=== PATIENT | male | born 1930 | race Caucasian/White ===

== ENCOUNTER 2019-02-21 14:18 | Inpatient (IN) ==
[2019-02-22 05:49] LABS: Basophils % 0.6 %; Eosinophils # 0.1 K/mcL (0.0-0.6); Eosinophils % 1.9 %; Hemoglobin 9.7 g/dL (12.9-16.9); Immature Granulocytes % 0.3 % (0-4); Lymphocytes % 14.4 %; Mean Corpuscular HGB Conc 31.3 g/dL (31.6-35.5); Mean Corpuscular Hemoglobin 25.7 pg (28.0-33.3); Mean Platelet Volume 10.7 fL (9.4-12.4); Monocytes # 0.8 K/mcL (0.0-1.3); Monocytes % 11.9 %; Platelet Count 279 K/mcL (140-400); Red Blood Count 3.78 M/mcL (4.19-5.50); Segmented Neutrophils % 70.9 %
[2019-02-22 06:10] LABS: BUN/Creatinine Ratio 18 (6-26); Blood Urea Nitrogen 13 mg/dL (8-23); Calcium 8.7 mg/dL (8.6-10.3); Carbon Dioxide 32 mEq/L (23-29); Chloride 97 mEq/L (98-107); Glucose 174 mg/dL (70-105); Osmolality,Calculated 288 (280-300); Potassium 3.5 mEq/L (3.5-5.1); Sodium 137 mEq/L (136-145); eGFR For African Americans > 60 (> 60); eGFR For Non-African Americans > 60 (> 60)
[2019-02-22] MEDS ORDERED: Insulin DETEMIR 100 UNIT/ML X5UNITS SQ SCH (09:00)
[2019-02-22] MEDS ORDERED: Spironolactone 25 MG TABLET PO SCH (09:00)
[2019-02-22] MEDS ORDERED: JARDIANCE 25MG PO SCH (09:00)
[2019-02-22] MEDS ORDERED: FLUoxetine HCl 10 MG CAPSULE PO SCH (09:00)
[2019-02-22] MEDS ORDERED: Furosemide 20 MG TABLET PO SCH (09:00)
[2019-02-22] MEDS ORDERED: Albuterol 2.5 MG/3 ML NEBULIZER ONE (12:33)
[2019-02-22] MEDS ORDERED: Bumetanide 1 MG TABLET PO SCH (15:00)
--- NOTE | 2019-02-22 15:07 | Internal Med History&Physical ---
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 Higher dose diuretics will be started. Workup for etiology of cirrhosis will be ordered. Qualifiers: Hepatic cirrhosis type: unspecified hepatic cirrhosis Ascites presence: with ascites Qualified Code(s): K74.60 - Unspecified cirrhosis of liver; R18.8 - Other ascites (2) Ascites Current visit: No Status: Acute Increase diuretics as above. Qualifiers: Ascites type: other type Qualified Code(s): R18.8 - Other ascites (3) Pleural effusion Current visit: Yes Status: Acute Echocardiogram will be ordered to evaluate ejection fraction and pericardial effusion. Increase diuretics. (4) Microcytic anemia Current visit: Yes Status: Chronic Anemia present on most labs since April 2014. Anemia testing will be ordered. (5) Low vitamin D level Current visit: Yes Status: Chronic Vitamin D level was 18 on 10/03/2014. Will recheck. (6) DM type 2 (diabetes mellitus, type 2) Current visit: Yes Status: Chronic Check hemoglobin A1c. Continue basal insulin and Accu-Cheks with SSI. Qualifiers: Diabetes mellitus ad terminal makeup operator insulin use: with ad terminal makeup operator use Diabetes mellitus complication status: without complication Qualified Code(s): E11.9 - Type 2 diabetes mellitus without complications; Z79.4 - detention (current) use of insulin (7) Hyperlipidemia Current visit: Yes Status: Chronic Check lipid profile in a.m. 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 Qualifiers: B-cell lymphoma type: unspecified B-cell Lymphoma site: unspecified region Qualified Code(s): C85.10 - Unspecified B-cell lymphoma, unspecified site (9) Falls Current visit: No Status: Acute PT and OT evaluation has been ordered. Qualifiers: Encounter type: initial encounter Qualified Code(s): W19.XXXA - Unspecified fall, initial encounter Internal Medicine - H&P: HPI Chief complaint: Fall, weakness, cirrhosis with ascites Admitted From: Hospital to Hospital Transfer Plans for Post Hospital Care: Home History of present illness: Mr. Rene is a 88 year old male who was hospitalized at [facility] February 16 after being found on the floor at home by his son. Patient had likely fallen 10-12 hours prior to being found but was unable to get up. His son who supplies most of the history states patient has had several previous falls. He routinely uses a wheeled walker at home. He was found to have large amount of ascites with evidence of liver cirrhosis and bilateral pleural effusions. Paracentesis by IR resulted in 7.28 L of fluid withdrawn. The fluid was not sent for analysis. He was started on Aldactone and Lasix and discharged to [facility] swing bed for ongoing care needs. The patient is a fair historian at best. He does not recall several details of his history. His son reports there is been increased abdominal girth over the past 2-3 months and the patient has become near bedridden. Patient lives alone with son next door. He has not consumed significant amount of alcohol in his lifetime and has had no previously documented liver disease. He had EGD for upper GI bleed at [facility] 2018 but the son does not know further details and the patient cannot remember the hospitalization. Patient denies known disorders of his liver or exocrine pancreas. He denies melena or hematochezia. Past Med Surg Social Fam HX - Past Medical History Medical history: cancer, CVA, diabetes, hyperlipidemia, hypertension Additional medical history: colon CA Psychiatric history: no psych history - Past Surgical History Surgical History: non-contributory - Social History Smoking Status: Former smoker Smokeless Tobacco Status: No Alcohol use: none Drug use: none Internal Medicine - H&P: Meds Insulin Glargine [Lantus] 50 unit SQ DAILY 05/01/17 [History] Omeprazole [PriLOSEC] 20 mg PO DAILY 03/25/18 [History] Ferrous Sulfate 325 mg PO BID 30 Days #60 tablet. 10/23/18 [Rx] Empagliflozin [Jardiance] 25 mg PO DAILY 02/18/19 [History] FLUoxetine HCl [Fluoxetine HCl] 10 mg PO DAILY 02/18/19 [History] Propranolol [Inderal] 20 mg PO DAILY 02/18/19 [History] Rosuvastatin [Crestor] 40 mg PO HS 02/18/19 [History] Furosemide [Lasix] 20 mg PO DAILY tablet 02/21/19 [Rx] Spironolactone [Aldactone] 12.5 mg PO DAILY tablet 02/21/19 [Rx] Allergy/AdvReac Type Severity Reaction Status Date / Time metformin AdvReac Unknown Abdominal Verified 10/23/18 09:24 Pain tamsulosin AdvReac Unknown unknown Verified 10/23/18 09:24 All Systems PM: A 10-system review of systems was performed and is negative for pertinent findings except as documented above in the HPI. Review of systems: Gen.: He states his weight has been stable for several months prior to developing ascites Cardiovascular: He has history of hypertension but denies CA heart failure angina DVT or pulmonary embolus Respiratory: He smoked briefly in his 20s but has no documented chronic lung disease and does not use home oxygen GI: As per history of present illness : He denies disorders of his kidney bladder or prostate Neurologic: He denies large distribution strokes or seizures. Endocrine: He was diagnosed with DM 2 approximately 20 years ago. He has hyp erlipidemia but no known thyroid disease. Hematology/oncology: He was diagnosed with B-cell lymphoma May 2017. He states he follows with an [facility] oncologist and thinks his most recent visit was at least 6 months ago. He denies other internal malignancies. He denies knowledge of anemia. Psychiatric: He denies anxiety depression or other mental health diagnosis. Musko skeletal: He denies arthritis gout or other bone joint or muscle disorders. - Constitutional Vitals: Temp Pulse Resp BP Pulse Ox 97.7 F 75 16 96/58 97 02/22/19 11:14 02/22/19 11:14 02/22/19 11:14 02/22/19 11:14 02/22/19 11:14 Exam: Gen.: He is a well-developed well-nourished male who appears in no severe distress. He denies pain at the present time. He states he is slightly dyspneic. HEENT: Head is atraumatic and normal cephalic. Eyes: EOMI. There is no scleral icterus. Mouth: Mucosa is moist. Neck: There is no thyromegaly or adenopathy noted. Heart: Regular without murmurs gallops or ectopics. Tones are soft. Lungs: He has bilateral pleural effusions to percussion. No wheezes or crackles are heard. Abdomen: He has a large abdomen with significant ascites present on percussion. No masses or guarding are noted. He has well-healed lower abdominal scar. Extremities: He has 2-3+ edema of the dorsal feet and lower legs bilaterally. Dorsalis pedis and posterior tibial pulses are nonpalpable. He has minimal DJD changes of his hands. He has multiple bruises and resolving skin tears on his arms. Neurologic: Mental status: He is alert and able to answer some questions but is a fair historian at best. Cranial nerves: Smile is symmetric. Forehead wrinkles bilaterally. Tongue protrudes midline. EOMI. Motor: There is no pronator drift. Cerebellar: Finger to nose is intact bilaterally. Skin: Warm and dry Internal Med - H&P Results - Labs CBC & Chem 7: 02/22/19 05:14 02/22/19 05:14 Labs: Short CBC 02/22/19 Range/Units 05:14 WBC 7.0 (4.3-11.1) K/mcL Hgb 9.7 L (12.9-16.9) g/dL Hct 31.0 L (37.5-50.1) % Plt Count 279 (140-400) K/mcL Neutrophils # 5.0 (1.6-8.9) K/mcL BMP 02/22/19 05:14 Sodium 137 Potassium 3.5 Chloride 97 L Carbon Dioxide 32 H BUN 13 Creatinine 0.74 Glucose 174 H Calcium 8.7
[2019-02-22] MEDS ORDERED: *HR* Dextrose 50 % in Water (Syg) 50 ML SYRINGE IVP PRN (16:29)
[2019-02-22] MEDS ORDERED: D5% in Water 1,000 ML IVC PRN (16:29)
[2019-02-22] MEDS ORDERED: Dextrose Gel 15 GM/37.5 ML TUBE PO PRN ×2 (16:29)
[2019-02-22] MEDS ORDERED: Insulin LISPRO 300 UNITS/3 ML VIAL SQ SCH (16:30)
[2019-02-22 16:32] LABS: Thyroid Stimulating Hormone 3.007 mcIU/mL (0.340-5.600)
[2019-02-22] MEDS ORDERED: *HR* Dextrose 50 % in Water (Vial) 50 ML VIAL IVP PRN (16:45)
[2019-02-22 20:30] LABS: Estimated Average Glucose 166 mg/dl
[2019-02-22 20:47] LABS: Ferritin 53 ng/mL (20-250); Iron < 10 mcg/dL (65-175); Transferrin 124 mg/dL (203-362)
[2019-02-22 20:52] LABS: Folate 7.8 ng/mL (3.0-16.0)
[2019-02-22 20:53] LABS: Vitamin B12 547 pg/mL (250-1100)
[2019-02-22 21:44] LABS: Bilirubin,Urine Negative (Negative); Blood,Urine Negative (Negative); Clarity,Urine Clear (Clear); Glucose,Urine (UA) Normal (Normal); Ketones,Urine Negative (Negative); Leukocyte Esterase,Urine Negative (Negative); Nitrite,Urine Negative (Negative); Protein,Urine Negative (Neg-Trace); Urobilinogen,Urine Normal (Normal)
[2019-02-22 21:45] LABS: Color,Urine Straw (Yellow)
[2019-02-22 22:52] LABS: Hepatitis B Surface Antigen Nonreactive (Nonreactive)
[2019-02-22 23:21] LABS: Hepatitis B Core IgM Nonreactive (Nonreactive); Hepatitis C Virus Antibody Nonreactive (Nonreactive)
[2019-02-22 23:23] LABS: Hepatitis A Antibody IgM Nonreactive (Nonreactive)
[2019-02-23 05:36] LABS: Basophils % 0.4 %; Eosinophils # 0.1 K/mcL (0.0-0.6); Eosinophils % 1.5 %; Hematocrit 31.4 % (37.5-50.1); Hemoglobin 10.1 g/dL (12.9-16.9); Immature Granulocytes % 0.4 % (0-4); Lymphocytes % 12.2 %; Mean Corpuscular HGB Conc 32.2 g/dL (31.6-35.5); Mean Corpuscular Volume 80.7 fL (83.0-100.0); Mean Platelet Volume 9.8 fL (9.4-12.4); Monocytes % 12.3 %; Neutrophils # 6.2 K/mcL (1.6-8.9); Platelet Count 341 K/mcL (140-400); Red Blood Count 3.89 M/mcL (4.19-5.50); Red Cell Distribution Width 19.4 % (11.5-14.5); Segmented Neutrophils % 73.2 %; White Blood Count 8.5 K/mcL (4.3-11.1)
[2019-02-23] MEDS ORDERED: *HR* Enoxaparin 40 MG/0.4 ML SYRINGE SQ SCH (06:00)
[2019-02-23 06:43] LABS: BUN/Creatinine Ratio 21 (6-26); Blood Urea Nitrogen 15 mg/dL (8-23); Calcium 8.4 mg/dL (8.6-10.3); Carbon Dioxide 35 mEq/L (23-29); Chloride 97 mEq/L (98-107); Chol/HDL Ratio 4.8 (0-4.9); Cholesterol 100 mg/dL (< 200); HDL Cholesterol 21 mg/dL (40-59); LDL Cholesterol,Calculated 68 mg/dL (0-99); Potassium 3.3 mEq/L (3.5-5.1); Sodium 136 mEq/L (136-145); Triglycerides 57 mg/dL (< 150); eGFR For African Americans > 60 (> 60); eGFR For Non-African Americans > 60 (> 60)
[2019-02-23 06:46] LABS: Osmolality,Calculated 278 (280-300)
[2019-02-23 06:50] LABS: Glucose 9 mg/dL (70-105)
[2019-02-23 07:25] VITALS: BP 138/74
--- NOTE | 2019-02-23 09:43 | Discharge Summary ---
Orders not resulted at time of discharge: Pending orders 02/22/19 14:56 EV echocardiogram Routine 02/22/19 15:45 [id number] Routine Ceruloplasmin Routine Smooth Muscle Antibody, IgG Routine 02/23/19 04:55 BRIANNE IgG JOHANN rflx IFA AM 0400 02/23/19 07:06 ABG [Arterial Blood Gas] Stat Date of Encounter: 02/23/19 Time of Encounter: 09:30 - Discharge Diagnosis (1) Cirrhosis of liver Priority: Primary Status: Chronic Qualifiers: Hepatic cirrhosis type: unspecified hepatic cirrhosis Ascites presence: with ascites Qualified Code(s): K74.60 - Unspecified cirrhosis of liver; R18.8 - Other ascites (2) Ascites Priority: Secondary Status: Acute Qualifiers: Ascites type: other type Qualified Code(s): R18.8 - Other ascites (3) Pleural effusion Priority: Secondary Status: Acute (4) Microcytic anemia Priority: Secondary Status: Chronic (5) Low vitamin D level Priority: Secondary Status: Chronic (6) DM type 2 (diabetes mellitus, type 2) Priority: Secondary Status: Chronic Qualifiers: Diabetes mellitus intermediate school teacher insulin use: with intermediate school teacher use Diabetes mellitus complication status: without complication Qualified Code(s): E11.9 - Type 2 diabetes mellitus without complications; Z79.4 - custodial (current) use of insulin (7) Hyperlipidemia Priority: Secondary Status: Chronic Qualifiers: Hyperlipidemia type: unspecified Qualified Code(s): E78.5 - Hyperlipidemia, unspecified (8) B-cell lymphoma Priority: Secondary Status: Chronic Qualifiers: B-cell lymphoma type: unspecified B-cell Lymphoma site: unspecified region Qualified Code(s): C85.10 - Unspecified B-cell lymphoma, unspecified site (9) Falls Priority: Secondary Status: Acute Qualifiers: Encounter type: initial encounter Qualified Code(s): W19.XXXA - Unspecified fall, initial encounter Hospital course: Mr. Rene is a 88 year old male who was hospitalized at [facility] February 16 after being found on the floor at home by his son. Patient had likely fallen 10-12 hours prior to being found but was unable to get up. His son who supplies most of the history states patient has had several previous falls. He routinely uses a wheeled walker at home. He was found to have large amount of ascites with evidence of liver cirrhosis and bilateral pleural effusions. Paracentesis by IR resulted in 7.28 L of fluid withdrawn. The fluid was not sent for analysis. He was started on Aldactone and Lasix and discharged to [facility] swing bed for ongoing care needs. Initial orders were written by the discharging physicians at [facility]. I saw him the afternoon of February 22 and performed a swing bed history and physical. He had significant ascites and peripheral edema when I saw him. Echocardiogram was ordered with additional lab work. Diuretic dose was increased to facilitate diuresis. Basal insulin was discontinued and he was transitioned to Accu-Cheks with SSI. In the small products i assembler hours of February 23 patient began experiencing significant decline with decreased responsiveness. He was found to have hypoglycemia. IV dextrose was administered. His respirations became more labored and oxygen saturation decreased. Chest x-ray showed near complete opacification of the right lung with significant increase in the right pleural e ffusion and worsening right airspace consolidation. He was placed on oxygen by [facility]. He continued to rapidly decline and was found to be without pulse or respirations at 0735 and was pronounced . No resuscitative efforts were done as per advanced directives. - Time Spent with Patient Total time spent providing and/or coordinating discharge services: - Discharge Medications Prescriptions: No Action Insulin Glargine [Lantus] 50 unit SQ DAILY Omeprazole [PriLOSEC] 20 mg PO DAILY Ferrous Sulfate 325 mg PO BID 30 Days #60 tablet. Empagliflozin [Jardiance] 25 mg PO DAILY FLUoxetine HCl [Fluoxetine HCl] 10 mg PO DAILY Propranolol [Inderal] 20 mg PO DAILY Rosuvastatin [Crestor] 40 mg PO HS Spironolactone [Aldactone] 12.5 mg PO DAILY tablet Furosemide [Lasix] 20 mg PO DAILY tablet Home Medications: Insulin Glargine [Lantus] 50 unit SQ DAILY 05/01/17 [History] Omeprazole [PriLOSEC] 20 mg PO DAILY 03/25/18 [History] Ferrous Sulfate 325 mg PO BID 30 Days #60 tablet. 10/23/18 [Rx] Empagliflozin [Jardiance] 25 mg PO DAILY 02/18/19 [History] FLUoxetine HCl [Fluoxetine HCl] 10 mg PO DAILY 02/18/19 [History] Propranolol [Inderal] 20 mg PO DAILY 02/18/19 [History] Rosuvastatin [Crestor] 40 mg PO HS 02/18/19 [History] Furosemide [Lasix] 20 mg PO DAILY tablet 02/21/19 [Rx] Spironolactone [Aldactone] 12.5 mg PO DAILY tablet 02/21/19 [Rx] Allergies/Adverse Reactions: Allergy/AdvReac Type Severity Reaction Status Date / Time metformin AdvReac Unknown Abdominal Verified 10/23/18 09:24 Pain tamsulosin AdvReac Unknown unknown Verified 10/23/18 09:24 Date of admission: 02/21/19 17:37 Primary care physician: PCP ID Consults: 02/21/19 14:50 Consult to [employer]or [CONS] Routine Reason for Consult: discharge planning 02/21/19 14:51 Consult to Physical Therapy [CONS] Routine Comment: Evaluate, develop and implement POC Reason for Consult: weakness Does patient have active BEDREST order?: No Is patient medically & hemodynamically stable?: Yes Patient assessed for mobility or mobilized this visit?: Yes OT [Consult to Occupational Therapy] [CONS] Routine Comment: Evaluate, develop and implement POC Reason for Consult: weakness Does patient have active BEDREST order?: No Is patient medically & hemodynamically stable?: Yes Patient assessed for mobility or mobilized this visit?: Yes - Constitutional Vitals: Temp Pulse Resp BP Pulse Ox 97.9 F 73 10 138/74 61 02/22/19 18:37 02/23/19 06:20 02/23/19 06:20 02/23/19 06:20 02/23/19 06:20 - Patient Status Disposition: - Discharge Instructions
[2019-02-26 10:13] LABS: ANA IgG by ELISA NONE DETECTED (None Detected)
== END 2019-02-23 07:35 | disposition expired | DRG 433 ==
LOC: INPPIK 17:37
PROVIDERS: ADMIT Internal Medicine; ATTEND Internal Medicine